=== PATIENT | female | born 1990 | race Caucasian/White ===

== ENCOUNTER 2024-10-26 13:52 | Outpatient (CLI) | payer OTHER, SELFPAY ==
--- OUTSIDE RECORDS SUMMARY | 2024-10-26 13:57 | XMS_ITS | Data Portability ---
Author Organization [facility] Address [address] [place] [address] Assessment No assessment recorded. Plan of Treatment Reminders Order Date Submit Date Provider Last Modified By Organization Details Last Modified Time Details Appointments None recorded. Lab None recorded. Referral None recorded. Procedures None recorded. Surgeries None recorded. Imaging MAMMO, diagnostic , bilateral [email or web address], [address], [place], [address], 10:23:55 Medication Orders None recorded. Patient TargetsNo targets recorded. Patient Instructions Encounter Date Encounter Id Patient Instructions Last Modified By Organization Details Last Modified Time 09/22/2024 [id number] breast lumps: care instructions [email or web address] Not available 09/22/2024 17:21:17 Reason for Referral None Reported. Problems Name Problem SNOMED Code Status Onset Date Resolution Date Notes Provider Name and Address Organization Details Recorded Time Breast lump 91595073 Active 025 ENRIQUE TAYLOR NP [address] [place], [address] , [facility]. 09/22/2024 17:20:24 Problem Notes None recorded. Medical Equipment None Reported. Allergies No known drug allergies Medications Not known to be on any medication Vitals Date Recorded Body height Body mass index (BMI) Body weight Heart rate Oxygen saturation Oxygen saturation in Arterial blood by Pulse oximetry Systolic And Diastolic Provider Name and Address Organization Details Last Updated DateTime 157.48 cm 27.1 kg/m2 01354.6 7 g 111 /min 98 % 98 % 124/83 mm[Hg] Kandis Wang [employer] 13:12:23 Social History Question Answer Notes LastModified by Organizat ion Details LastModified Time Tobacco Smoking Status Never Smoker Kandis Wang william [employer] 09/22/2024 13:03:23 If You Are , What Was Your Level Of Alcohol Consumption Prior To ? None Information not available 09/22/2024 Do You Wear A Helmet When Biking? No Information not available 09/22/2024 Are You Blind Or Do You Have Difficulty Seeing? No Information n ot available 09/22/2024 What Is Your Level Of Caffeine Consumption? Occasional Information not available 09/22/2024 What Type Of Business Process Coordinator Do You Use? None Information not available 09/22/2024 In The 14 Days Before Symptom Onset, Have You Had Close Contact With A Laboratory-confirm ed COVID-19 While That Case Was Ill? No Information n ot available 09/22/2024 In The 14 Days Before Symptom Onset, Have You Had Close Contact With A Person Who Is Under Investigation For COVID-19 While That Person Was Ill? No Information not available 09/22/2024 Have You Been To An Area Known To Be High Risk For COVID-19? No Information not available 09/22/2024 Are You Deaf Or Do You Have Serious Difficulty Hearing? No Information not available 09/22/2024 What Type Of Diet Are You Following? REGULAR Information n ot available 09/22/2024 What Is The Highest Grade Or Level Of School You Have Completed Or The Highest Degree You Have Received? [id number] Information not available 09/22/2024 How Many Days Of Moderate To Strenuous Exercise, Like A Brisk Walk, Did You Do In The Last 7 Days? 2 Information not available 09/22/2024 Have There Been Any Changes To Your Family Or Social Situation? No Information no t available 09/22/2024 Which Of Your Hands Is Dominant? Right Information n ot available 09/22/2024 What Is Your Home Situation? Both Parents Information not available 09/22/2024 What Was The Date Of Your Most Recent Tobacco Screening? 09/22/2024 Information not available 09/22/2024 Have You Ever Been Counseled For Unhealthy Alcohol Use? No Information not available 09/22/2024 Do You Have Any Pets? No Information not available 09/22/2024 What Is Your Relationship Status? Information not available 09/22/2024 Have You Repeated Any Grades? No Information not available 09/22/2024 Do You Use Your Seat Belt Or Car Seat Routinely? Yes Information not available 09/22/2024 Are You Sexually Active? Yes Information not available 09/22/2024 Are You Passively Exposed To Smoke? No Information no t available 09/22/2024 Are There Any Smokers In Your House? No Information not available 09/22/2024 Do You Participate In Social Media? No Information not available 09/22/2024 Do You Use Sunscreen Routinely? Yes Information not available 09/22/2024 Has Tobacco Cessation Counseling Been Provided? No Information not available 09/22/2024 Have You Recently Traveled Abroad? No Information not available 09/22/2024 Do You Have Difficulty Walking Or Climbing Stairs? No Information not available 09/22/2024 Sex: Unknown Functional Status Question Answer Note LastModified by Organizat ion Details LastModified Time Do you use any illicit or recreational drugs? No Information not available 09/22/2024 What is your level of alcohol consumption? Occasional Information not available 09/22/2024 Are you currently employed? No Information not available 09/22/2024 Are you able to walk? YESWOREST Information not available 09/22/2024 Do you have difficulty doing errands alone? No Information not available 09/22/2024 Are you able to care for yourself? Yes Information n ot available 09/22/2024 Do you have difficulty dressing or bathing? No Information not available 09/22/2024 What is your exercise level? Occasional Information not available 09/22/2024 Mental Status Question Answer Note LastModified by Organizat ion Details LastModified Time Do you feel stressed (tense, restless, nervous, or anxious, or unable to sleep at night)? [id number] Information not available 09/22/2024 Do you have difficulty concentrating, remembering or making decisions? No Information no t available 09/22/2024 Family History Relationship Description Onset Age of this Age Resolved Age Notes LastModified by Organization Details LastModified Time Father No current problems or disability Not available 09/22 13:10:24 Mother No current problems or disability Not available 09/22 13:10:24 Medical History Condition Response Hospitalizations N Emergency room visit since last appointm ent. N Abuse/Domestic Violence N ADD/ADHD N Gynecological HistoryNo gynecological history recorded. Obstetrics History GPAL:G 0 P 0 0 0 0 Past Encounters Encounter ID Performer Location Encounter Start Date Encounter Closed Date Diagnosis/Indication Diagnosis SNOMED-CT Code Diagnosis ICD10 Code Diagnosis Note [id number] ENRIQUE TAYLOR NP [place] [id number] 0 09/22/2024 12:41:13 09/25/2024 09:32:19 Breast lump 62911572 N63.15 Health Concerns Section Related Observation LastModified by Organization Detai ls LastModified Time None Recorded Concern Status LastModified by Organization Details LastModified Time None Recorded Advance Directives Directive None Recorded Payers Insurance Date Sequence Insurance Name Policy Number Policy Levin Covered Member ID Levin Member ID Guarantor Name 09/20/2024 SLIDING FEE SCHEDULE - DISCOUNT Rima Federica 10/12/2024 1 *SELF PAY* Aggie cortezya Federcia 10/16/2024 1 [employer] [facility] (MEDICAID HMO) Rima Stallworth [id number] Rima Stallworth Notes Date Note Type Note Provider Name and Address Organization Details Recorded Time 09/22/2024 text/html Presents today to establish care, denies any past medical history or chronic conditions. Primary reason for visit is concern for new mass in right breast. Noticed mass about 3 weeks ago, feels like it has grown some since she first noticed it. Reports the mass is hard and mostly round, can be felt behind the nipple area. No enlarged lymph nodes, no skin changes, no nipple changes, no discharge. ENRIQUE TAYLOR NP [address] [place] [address], [address], [facility] [email or web address] 09/22/2024 17:22:25 OBGyn Episode No OBEpisode recorded.
--- OUTSIDE RECORDS SUMMARY | 2024-10-26 13:57 | XMS_ITS | Continuity of Care Document ---
Author Organization [employer] [facility] Address [address] [place] [address] Assessment No assessment recorded. Plan of Treatment Reminders Order Date Submit Date Provider Last Modified By Organization Details Last Modified Time Details Appointments None recorded. Lab None recorded. Referral None recorded. Procedures None recorded. Surgeries None recorded. Imaging MAMMO, diagnostic , bilateral [address] ([facility]), [address], [place], [address], 10:23:55 Medication Orders None recorded. Patient TargetsNo targets recorded. Patient Instructions Encounter Date Encounter Id Patient Instructions Last Modified By Organization Details Last Modified Time 09/22/2024 [id number] breast lumps: care instructions [email or web address] Not available 09/22/2024 17:21:17 Reason for Referral None Reported. Problems Name Problem SNOMED Code Status Onset Date Resolution Date Notes Provider Name and Address Organization Details Recorded Time Breast lump 89266661 Active 025 ENRIQUE TAYLOR NP [address] [place], [address] , [employer] 09/22/2024 17:20:24 Problem Notes None recorded. Medical Equipment None Reported. Allergies No known drug allergies Medications Not known to be on any medication Vitals Date Recorded Body height Body mass index (BMI) Body weight Heart rate Oxygen saturation Oxygen saturation in Arterial blood by Pulse oximetry Systolic And Diastolic Provider Name and Address Organization Details Last Updated DateTime 157.48 cm 27.1 kg/m2 90550.6 7 g 111 /min 98 % 98 % 124/83 mm[Hg] Kandis Wang [employer] 13:12:23 Social History Question Answer Notes LastModified by Organizat ion Details LastModified Time Tobacco Smoking Status Never Smoker Kandis Wang william [employer] 09/22/2024 13:03:23 If You Are , [...] Information not available 09/22/2024 What Type Of Mechanical Manufacturing Engineer Do You Use? None Information not available [...] Or The Highest Degree You Have Received? [id number] Information not available 09/22/2024 How Many Days [...] anxious, or unable to sleep at night)? [id number] Information not available 09/22/2024 Do you have [...] room visit since last appointm ent. N ADD/ADHD N Abuse/Domestic Violence N Gynecological HistoryNo gynecological history recorded. Obstetrics History GPAL:G 0 P 0 0 0 0 Past Encounters Encounter ID Performer Location Encounter Start Date Encounter Closed Date Diagnosis/Indication Diagnosis SNOMED-CT Code Diagnosis ICD10 Code Diagnosis Note [id number] ENRIQUE TAYLOR NP [address] [address] 09/22/2024 12:41:13 09/25/2024 09:32:19 Breast lump [id number] N63.15 Health Concerns Section Related Observation LastModified by Organization Detai ls LastModified Time None Recorded Concern Status LastModified by Organization Details LastModified Time None Recorded Payers Encounter Date Sequence Insurance Name Policy Number Policy Levin Covered Member ID Levin Member ID Guarantor Name 09/22/2024 1 *SELF PAY* Aggie Mejiakiko Notes Date Note Type Note Provider Name [...] nipple changes, no discharge. ENRIQUE TAYLOR NP [address] [place] [address], [phone], [facility] 09/22/2024 17:22:25 OBGyn Episode No OBEpisode recorded.
--- NOTE | 2024-10-26 13:58 | MM_ITS ---
PROCEDURE INFORMATION: Exam: MG Bilateral Diagnostic Breast Tomosynthesis MG Bilateral Diagnostic Mammography Exam date and time: 10/26/2024 2:03 PM Age: 34 years old Clinical indication: Right breast palpable lump; Additional info: Mass overlapping quadrants of righ breast TECHNIQUE: Imaging protocol: Bilateral Diagnostic tomosynthesis and 2D mammography including computer-aided detection (CAD) when performed. Unilateral or bilateral exam. Diagnostic mammography of the bilateral breasts including computer-aided detection (CAD) when performed. Bilateral exam. COMPARISON: No relevant prior studies available. FINDINGS: MAMMOGRAPHY: Breast composition: The breasts are extremely dense, which lowers the sensitivity of mammography. Breast mammogram findings: There is an oval circumscribed mass in the retroareolar right breast at the site of palpable concern which measures 5.7 cm. There is no distortion or suspicious calcifications. IMPRESSION: Mass in the right retroareolar region correlates with the palpable area of concern. Further evaluation with ultrasound is recommended. ASSESSMENT: BI-RADS Category 0: Incomplete- Need Additional Imaging Evaluation.
== END 2024-10-26 23:59 | disposition home or self-care (01) ==
LOC: RAD 13:55
DX: N63.41 Unspecified lump in right breast, subareolar (principal); R92.333 Mammographic heterogeneous density, bilateral breasts
CPT/HCPCS: 77062; 77066; G0279

== ENCOUNTER 2024-11-08 14:54 | Outpatient (CLI) | payer OTHER, SELFPAY ==
--- OUTSIDE RECORDS SUMMARY | 2024-11-08 14:56 | XMS_ITS | Data Portability ---
Author Organization [employer] Address [address] [place] [address] Assessment No assessment recorded. Plan of Treatment Reminders Order Date Submit Date Provider Last Modified By Organization Details Last Modified Time Details Appointments None recorded. Lab None recorded. Referral None recorded. Procedures None recorded. Surgeries None recorded. Imaging MAMMO, diagnostic , bilateral 2024 025 [facility] (Scheduling), [address], [place], [address], 13:38:00 Medication Orders None recorded. Patient TargetsNo targets recorded. Patient Instructions Encounter Date Encounter Id Patient Instructions Last Modified By Organization Details Last Modified Time 09/22/2024 [id number] breast lumps: care [email or web address] Not available 09/22/2024 17:21:17 Reason for Referral None Reported. Results Created Date Observation Date Name Description Value Unit Range Abnormal Flag Note LastModifiedBy Organization Detail LastModifiedTime 11/01/19 25 10/26/2024 MAMMO , diagn ostic , bilat eral No observ ation record ed. [email or web address] [facility] [address], [place], [address], 11/03/2024 16:18:36 Result Notes None recorded. Problems Name Problem SNOMED Code Status Onset Date Resolution Date Notes Provider Name and Address Organization Details Recorded Time Breast lump 28881064 Active 2024 ENRIQUE TAYLOR NP [address] [facility], [place], [address], [employer] 16:15:38 Lump of subareolar area of right breast 4935816100612 9106 Active 2024 ENRIQUE TAYLOR NP [address] [facility], [place], [address], [employer] 16:15:50 Problem Notes None recorded. Medical Equipment None Reported. Allergies No known drug allergies Medications Not known to be on any medication Vitals Date Recorded Body height Body mass index (BMI) Body weight Heart rate Oxygen saturation Oxygen saturation in Arterial blood by Pulse oximetry Systolic And Diastolic Provider Name and Address Organization Details Last Updated DateTime 157.48 cm 27.1 kg/m2 49650.6 7 g 111 /min 98 % 98 % 124/83 mm[Hg] Kandis Wang [employer] 13:12:23 Social History Question Answer Notes LastModified by Organizat ion Details LastModified Time Tobacco Smoking Status Never Smoker Kandis Wang william, [employer] 09/22/2024 13:03:23 If You Are , What Was Your Level Of Alcohol Consumption Prior To ? None Information not available 09/22/2024 Do You Wear A Helmet When Biking? No Information not available 09/22/2024 Are You Blind Or Do You Have Difficulty Seeing? No Information n ot available 09/22/2024 What Is Your Level Of Caffeine Consumption? Occasional Information not available 09/22/2024 What Type Of Motion Picture Cameraman Do You Use? None Information not available [...] Or The Highest Degree You Have Received? [id number] Information not available 09/22/2024 How Many Days [...] anxious, or unable to sleep at night)? [id number] Information not available 09/22/2024 Do you have difficulty concentrating, remembering or making decisions? No Information no t available 09/22/2024 Family History Relationship Description Onset Age of this Age Resolved Age Notes LastModified by Organization Details LastModified Time Father No current problems or disability Not available 09/22 13:10:24 Mother No current problems or disability Not available 09/22 13:10:24 Medical History Condition Response Emergency room visit since last appointm ent. N Hospitalizations N ADD/ADHD N Abuse/Domestic Violence N Gynecological HistoryNo gynecological history recorded. Obstetrics History GPAL:G 0 P 0 0 0 0 Past Encounters Encounter ID Performer Location Encounter Start Date Encounter Closed Date Diagnosis/Indication Diagnosis SNOMED-CT Code Diagnosis ICD10 Code Diagnosis Note [id number] ENRIQUE TAYLOR NP [address] [address] 09/22/2024 12:41:13 09/25/2024 09:32:19 Breast lump 77567270 N63.15 Health Concerns Section Related Observation LastModified by Organization Detai ls LastModified Time None Recorded Concern Status LastModified by Organization Details LastModified Time None Recorded Advance Directives Directive None Recorded Payers Insurance Date Sequence Insurance Name Policy Number Policy Levin Covered Member ID Levin Member ID Guarantor Name 09/20/2024 SLIDING FEE SCHEDULE - DISCOUNT Rima Stallworth 10/12/2024 1 *SELF PAY* Aggie Stallworth 10/16/2024 1 [employer] [facility] (MEDICAID HMO) Rima Stallworth [id number] Rima Stallworth Notes Date Note Type Note [...] nipple changes, no discharge. ENRIQUE TAYLOR NP [address] [place] [address], [place], [address], [facility] [employer] 09/22/2024 17:22:25 OBGyn Episode No OBEpisode recorded.
--- OUTSIDE RECORDS SUMMARY | 2024-11-08 14:56 | XMS_ITS | Continuity of Care Document ---
Author Organization [facility] Address [address] [place] [address] Assessment No assessment recorded. Plan of Treatment Reminders Order Date Submit Date Provider Last Modified By Organization Details Last Modified Time Details Appointments None recorded. Lab None recorded. Referral None recorded. Procedures None recorded. Surgeries None recorded. Imaging MAMMO, diagnostic , bilateral 2024 025 [facility] (Scheduling), [address], [place], [address], 13:38:00 Medication Orders None recorded. Patient TargetsNo targets recorded. Patient Instructions Encounter Date Encounter Id Patient Instructions Last Modified By Organization Details Last Modified Time 09/22/2024 [id number] breast lumps: [email or web address] Not available 09/22/2024 17:21:17 Reason for Referral None Reported. Results Created Date Observation Date Name Description Value Unit Range Abnormal Flag Note LastModifiedBy Organization Detail LastModifiedTime 11/01/1910/26/2024 MAMMO , diagn ostic , bilat eral No observ ation record ed. [email or web address] [facility] [address], [place], [address], 11/03/2024 16:18:36 Result Notes None recorded. Problems Name Problem SNOMED Code Status Onset Date Resolution Date Notes Provider Name and Address Organization Details Recorded Time Breast lump 77869711 Active 2024 ENRIQUE TAYLOR NP [address] [place], [address], [employer] 16:15:38 Lump of subareolar area of right breast 7819713549897 9106 Active 2024 ENRIQUE TAYLOR NP [address] [place], [address], [employer] 16:15:50 Problem Notes None recorded. Medical Equipment None Reported. Allergies No known drug allergies Medications Not known to be on any medication Vitals Date Recorded Body height Body mass index (BMI) Body weight Heart rate Oxygen saturation Oxygen saturation in Arterial blood by Pulse oximetry Systolic And Diastolic Provider Name and Address Organization Details Last Updated DateTime 157.48 cm 27.1 kg/m2 83293.6 7 g 111 /min 98 % 98 % 124/83 mm[Hg] Kandis Wang [employer] 13:12:23 Social History Question Answer Notes LastModified by Organizat ion Details LastModified Time Tobacco Smoking Status Never Smoker Kandis Wang william, [employer] 09/22/2024 13:03:23 If You Are , What Was Your Level Of Alcohol Consumption Prior To ? None Information not available 09/22/2024 Do You Wear A Helmet When Biking? No Information not available 09/22/2024 Are You Blind Or Do You Have Difficulty Seeing? No Information n ot available 09/22/2024 What Is Your Level Of Caffeine Consumption? Occasional Information not available 09/22/2024 What Type Of Miller First Do You Use? None Information not available [...] Or The Highest Degree You Have Received? [id number] Information not available 09/22/2024 How Many Days [...] anxious, or unable to sleep at night)? [id number] Information not available 09/22/2024 Do you have difficulty concentrating, remembering or making decisions? No Information no t available 09/22/2024 Family History Relationship Description Onset Age of this Age Resolved Age Notes LastModified by Organization Details LastModified Time Father No current problems or disability Not available 09/22 13:10:24 Mother No current problems or disability Not available 09/22 13:10:24 Medical History Condition Response Hospitalizations N ADD/ADHD N Emergency room visit since last appointm ent. N Abuse/Domestic Violence N Gynecological HistoryNo gynecological history recorded. Obstetrics History GPAL:G 0 P 0 0 0 0 Past Encounters Encounter ID Performer Location Encounter Start Date Encounter Closed Date Diagnosis/Indication Diagnosis SNOMED-CT Code Diagnosis ICD10 Code Diagnosis Note [id number] ENRIQUE TAYLOR NP [address] [address] 09/22/2024 12:41:13 09/25/2024 09:32:19 Breast lump 78993016 N63.15 Health Concerns Section Related Observation LastModified by Organization Detai ls LastModified Time None Recorded Concern Status LastModified by Organization Details LastModified Time None Recorded Payers Encounter Date Sequence Insurance Name Policy Number Policy Levin Covered Member ID Levin Member ID Guarantor Name 09/22/2024 1 *SELF PAY* Aggie Stallworth Notes Date Note Type Note Provider [...] changes, no nipple changes, no discharge. ENRIQUE TAYLOR, DAYA [address] [place] [address], [place], [address], [facility] [email or web address] 09/22/2024 17:22:25 OBGyn Episode No OBEpisode recorded.
--- NOTE | 2024-11-08 14:58 | US_ITS ---
PROCEDURE INFORMATION: Exam: US Right Breast, Complete Exam date and time: 11/08/2024 2:52 PM Age: 34 years old Clinical indication: Patient recalled for further evaluation of a right breast mass TECHNIQUE: Imaging protocol: Complete ultrasound of all four quadrants of the right breast and the retroareolar regions, including ultrasound of the axilla when performed. COMPARISON: MG MM DIG MAMM BI DX W/CAD 10/26/2024 2:03 PM FINDINGS: ULTRASOUND: Breast ultrasound findings: Sonographic images of the right breast including the retroareolar region, all 4 quadrants and the axilla were obtained. Fairly widespread cystic change is present measuring up to 4.6 cm in the right retroareolar region corresponding to the dominant mass on mammography. Cursors were placed over what is most likely normal fibroglandular structures in the right 7 o'clock axis 5 cm from the nipple measuring 1.0 x 0.5 x 0.9 cm.. No architectural distortion or acoustical shadowing. No skin thickening or axillary adenopathy. IMPRESSION: Mass on screening mammography corresponds to underlying cystic change sonographically. Cursors were plasty of what appears to be an island of normal fibroglandular structures in the right 7 o'clock axis 5 cm from the nipple. A six-month follow-up precautionary targeted right breast ultrasound is recommended to ensure stability over time. ASSESSMENT: BI-RADS Category 3: Probably benign.
== END 2024-11-08 23:59 | disposition home or self-care (01) ==
LOC: RAD 14:54
DX: N63.41 Unspecified lump in right breast, subareolar (principal)
CPT/HCPCS: 76641